=== PATIENT | female | born 1935 | race Caucasian/White ===

== ENCOUNTER 2018-05-06 13:41 | Observation (INO) ==
[2018-05-06] MEDS ORDERED: Diatrizoate Meglum/Diatrizoate Sod Liq 9 ML UDC PO ONE (14:28)
[2018-05-06] MEDS ORDERED: Sod Chloride 0.9% Inj 1,000 ML IV.SIG SCH (14:30)
--- NOTE | 2018-05-06 14:44 | ED ---
HPI General Chief complaint: Weakness Stated complaint: Medical Time Seen by Provider: 05/06/18 14:15 Source: patient Mode of arrival: ambulatory Limitations: no limitations History of Present Illness HPI Narrative: 82 F c/o decreased appetite for two weeks along with constipation and decreased urination. appetite decreased. decrease oral hydration reported due to nausea throughout. + Vomiting x 1 today, nonbloody. No similar prior episode. Constipation has been helped by laxatives over past few days. Pt reports no ongoing medical care 2/2 no insurance or PMD for past twenty years. No cp/sob. + Subjective intermittent fevers for past few acuna reported. Related Data Home Medications Medication Instructions Recorded Confirmed No Known Home Medications 05/06/18 05/06/18 Allergies Allergy/AdvReac Type Severity Reaction Status Date / Time Fish Containing Products Allergy Rash Verified 05/06/18 14:10 Review of Systems ROS: all other systems reviewed are negative [facility] Medical History Medical History Anemia (Acute) Surgical History Surgical History H/O hemorrhoidectomy (Acute) History of knee surgery (Acute) Family History Family History Other Family history normal Social History Social History Substance History: No History of Abuse Second Hand Smoke Exposure: Yes Smoking Status: Never smoker How Often Do You Have a Drink Containing Alcohol: Never Recent Travel in [facility] within the Last 8 Weeks: No Recent Out of Country Travel within the Last 8 Weeks: No Exam Narrative Exam Narrative: GENERAL: 82 yo F, mildly anxious, WNWD SKIN: Focused skin assessment warm/dry. HEAD: Atraumatic. Normocephalic. EYES: Pupils equal and round. No scleral icterus. No injection or drainage. ENT: No nasal bleeding or discharge. Mucous membranes pink and moist. NECK: Trachea midline. No JVD. CARDIOVASCULAR: Tachycardia. Regular. RESPIRATORY: No accessory muscle use. Clear to auscultation. Breath sounds equal bilaterally. GASTROINTESTINAL: TTP epigastrium. Firm abdomen. No flank TTP. MUSCULOSKELETAL: No obvious deformities. No clubbing. No cyanosis. No edema. NEUROLOGICAL: Awake and alert. No obvious cranial nerve deficits. Motor grossly within normal limits. Normal speech. PSYCHIATRIC: Appropriate mood and affect; insight and judgment normal. Course Initial Documented Vital Signs Temperature 98.8 F 05/06/18 13:53 Pulse Rate 105 H 05/06/18 13:53 Respiratory Rate 20 12/05/18 13:53 Blood Pressure 197/95 H 05/06/18 13:53 Pulse Oximetry 96 05/06/18 13:53 Last Documented Vital Signs Temperature 98.0 F 05/07/18 08:00 Pulse Rate 94 H 05/07/18 08:00 Respiratory Rate 18 05/07/18 08:00 Blood Pressure 168/83 H 05/07/18 08:00 Pulse Oximetry 92 L 05/07/18 08:00 Sign Out Sign Out Data: Patient Sign Out occurred on 05/06/18 at 15:02. Patient's care was discussed, and care was transferred from Tomy Mills MD to Ari Bear MD. Sign Out Comment: multiple complaints with constipation, n and vomiting predominant ct ab/pel pending with significant epigastric ttp and possible abdominal mass thanks Last updated by Tomy Mills MD at 05/06/18 14:53 Post-Handoff Eval: The patient was initially seen by Dr. Mills, please refer to the initial history and physical. The patient has complained of anorexia, nausea, and an increase in abdominal pain with constipation. Has had any recent weight loss, has been attempting to eat cheesecake for her persistent abdominal pain with nausea and vomiting. CT of the abdomen and pelvis reveals significant intra- abdominal lymphadenopathy of the mesentery and retroperitoneum, suspicious for lymphoma and possibly leukemia. The patient denies any known history of cancer , does not have a primary physician, therefore, will be a 23-hour observation for interventional radiology biopsy and possible oncology input so patient has outpatient follow-up. Therefore, the on-call medical service was paged for 23- hour observation. I discussed the patient with Dr. Ma who recommends case management evaluation to evaluate for possible outpatient workup. Dior, case management, evaluated the patient and she recommends 23-hour observation for biopsy results and oncology evaluation. I had a discussion with the patient once again, she lives alone, does not drive, and calls a car service for rides. I had a discussion with the patient regarding the possibility of obtaining a ride to get an outpatient biopsy via interventional radiology, she is unsure if this is able to be done. Case management thought it may be an unsafe discharge if patient is discharged home with no availability of a ride to get to interventional radiology for biopsy. I discussed the patient once again with Dr. Ma who agrees with 23- hour observation, patient would benefit from IR evaluation for biopsy, oncology recommendations, and possibly case management evaluation of the patient's home situation and possible needs at home for outpatient follow-up. Medical Decision Making GREGORY Attestation GREGORY supervised visit: Yes MDM Narrative Medical decision making narrative: Case d/w Dr Bear at 300pm with work up having been started about [address] ab/pel along with blood work pending at that time. Disposition dependent on results of work up. Medical Screen Exam Complete: Yes Emergency Medical Condition: Yes Differential Diagnosis Differential Diagnosis: Differential diagnosis includes gastritis, gastroenteritis, pancreatic cancer, colon cancer, symptomatic anemia, acute kidney injury, renal failure, UTI. Lab Data Result diagrams: 05/06/18 14:40 05/06/18 14:40 Lab Results 05/06/18 05/06/18 05/06/18 Range/Units 14:40 14:40 14:40 WBC 6.4 (4.0-11.0) th/mm3 RBC 4.89 (4.00-5.30) mil/mm3 Hgb 14.5 (11.6-15.3) gm/dL Hct 42.7 (35.0-46.0) % MCV 87.3 (80.0-100.0) fL MCH 29.6 (27.0-34.0) pg MCHC 33.9 (32.0-36.0) % RDW 13.4 (11.6-17.2) % Plt Count 312 (150-450) th/mm3 MPV 6.6 L (7.0-11.0) fL Neut % (Auto) 70.7 H (16.0-70.0) % Lymph % (Auto) 15.0 (9.0-44.0) % Hart % (Auto) 12.0 H (0.0-8.0) % Eos % (Auto) 1.4 (0.0-4.0) % Baso % (Auto) 0.9 (0.0-2.0) % Neut # (Auto) 4.5 (1.8-7.7) th/mm3 Lymph # (Auto) 1.0 (1.0-4.8) th/mm3 Hart # (Auto) 0.8 (0.0-0.9) th/mm3 Eos # (Auto) 0.1 (0.0-0.4) th/mm3 Baso # (Auto) 0.1 (0.0-0.2) th/mm3 WBC Differential . Differential Comment Auto diff final PT (9.8-11.6) sec INR Ratio APTT (23.4-31.7) sec Sodium 140 (136-145) meq/L Potassium 3.9 (3.5-5.1) meq/L Chloride 103 (98-107) meq/L Carbon Dioxide 28.0 (21.0-32.0) meq/L Anion Gap 9 (5-15) meq/L BUN 13 (7-18) mg/dL Creatinine 0.95 (0.50-1.00) mg/dL Estimated GFR 57 L (>89) mL/min Random Glucose 102 (74-106) mg/dL Lactic Acid 1.4 (0.4-2.0) mmol/L Calcium 10.2 H (8.5-10.1) mg/dL Magnesium 2.4 (1.5-2.5) mg/dL Total Bilirubin 0.4 (0.2-1.0) mg/dL AST 28 (15-37) U/L ALT 40 (10-53) U/L Alkaline Phosphatase 109 (45-117) U/L Total Protein 7.8 (6.4-8.2) g/dL Albumin 3.5 (3.4-5.0) g/dL Lipase 110 (73-393) U/L Urine Color (Yellw/Straw) Urine Clarity (Clear) Urine pH (5.0-8.5) Ur Specific [place] (1.002-1.035) Urine Protein (Neg-Trace) mg/dL Urine Glucose (UA) (Negative) mg/dL Urine Ketones (Negative) mg/dL Urine Occult Blood (Negative) Urine Nitrate (Negative) Urine Bilirubin (Negative) Urine Urobilinogen (Less than 2) mg/dL Ur Leukocyte Esterase (Negative) Urine RBC (0-3) /hpf Urine WBC (0-5) /hpf Ur Squamous Epith Cells (0-5) /hpf Amorphous Sediment (None) /hpf Urine Bacteria (None) /hpf Hyaline Casts (0-3) /lpf Urine Mucus (Occasional) /lpf Micro UA Comment Ur Microscopic Review Urine Culture Comments 05/06/18 05/06/18 Range/Units 14:42 21:50 WBC (4.0-11.0) th/mm3 RBC (4.00-5.30) mil/mm3 Hgb (11.6-15.3) gm/dL Hct (35.0-46.0) % MCV (80.0-100.0) fL MCH (27.0-34.0) pg MCHC (32.0-36.0) % RDW (11.6-17.2) % Plt Count (150-450) th/mm3 MPV (7.0-11.0) fL Neut % (Auto) (16.0-70.0) % Lymph % (Auto) (9.0-44.0) % Hart % (Auto) (0.0-8.0) % Eos % (Auto) (0.0-4.0) % Baso % (Auto) (0.0-2.0) % Neut # (Auto) (1.8-7.7) th/mm3 Lymph # (Auto) (1.0-4.8) th/mm3 Hart # (Auto) (0.0-0.9) th/mm3 Eos # (Auto) (0.0-0.4) th/mm3 Baso # (Auto) (0.0-0.2) th/mm3 WBC Differential Differential Comment PT 11.4 (9.8-11.6) sec INR 1.1 Ratio APTT 28.0 (23.4-31.7) sec Sodium (136-145) meq/L Potassium (3.5-5.1) meq/L Chloride (98-107) meq/L Carbon Dioxide (21.0-32.0) meq/L Anion Gap (5-15) meq/L BUN (7-18) mg/dL Creatinine (0.50-1.00) mg/dL Estimated GFR (>89) mL/min Random Glucose (74-106) mg/dL Lactic Acid (0.4-2.0) mmol/L Calcium (8.5-10.1) mg/dL Magnesium (1.5-2.5) mg/dL Total Bilirubin (0.2-1.0) mg/dL AST (15-37) U/L ALT (10-53) U/L Alkaline Phosphatase (45-117) U/L Total Protein (6.4-8.2) g/dL Albumin (3.4-5.0) g/dL Lipase (73-393) U/L Urine Color [place] (Yellw/Straw) Urine Clarity Cloudy H (Clear) Urine pH 6.0 (5.0-8.5) Ur Specific [place] 1.014 (1.002-1.035) Urine Protein Negative (Neg-Trace) mg/dL Urine Glucose (UA) Negative (Negative) mg/dL Urine Ketones Trace H (Negative) mg/dL Urine Occult Blood Negative (Negative) Urine Nitrate Negative (Negative) Urine Bilirubin Negative (Negative) Urine Urobilinogen Less than 2 (Less than 2) mg/dL Ur Leukocyte Esterase Large H (Negative) Urine RBC 1 (0-3) /hpf Urine WBC 4 (0-5) /hpf Ur Squamous Epith Cells 2 (0-5) /hpf Amorphous Sediment Rare H (None) /hpf Urine Bacteria Rare H (None) /hpf Hyaline Casts 1 (0-3) /lpf Urine Mucus Few H (Occasional) /lpf Micro UA Comment Culture not ind Ur Microscopic Review Not Reportable Urine Culture Comments Culture not ind Imaging Data Radiologist's impression: Abdomen/Pelvis CT 05/06/18 14:28 CONCLUSION: 1. Extensive retroperitoneal, peritoneal and mesenteric adenopathy considerations include both a lymphoma and chronic lymphocytic leukemia. Any of these nodes would be amenable to pancreas biopsy with large caliber needle for diagnosis. 2. Gallstones and a prominent gallbladder. Discharge Plan Discharge Disposition Patient Disposition: ED Admit(ED Internal Use Only) Discharge Condition Condition: Stable Discharge Order Discharge Orders: ED Use Only Admit Order (Routine); Ordered 05/06/18 Ordered By: Ari Bear Discharge Details Diagnosis: Intra-abdominal lymphadenopathy Physicians Team ED Provider: Ari Bear Primary Care Provider: Primary Care Brandy Gutiérrez Attending Provider: Leander Gregory Other Providers: Wiley Phillips Status ED Status: Left Department Discharge Information Discharge Date/Time: 05/06/18 22:35
[2018-05-06 14:57] LABS: Amorphous Sediment,Urine Rare /hpf; Bacteria,Urine Rare /hpf; Bilirubin,Urine Negative (Negative); Clarity,Urine Cloudy (Clear); Color,Urine Amber (Yellw/Straw); Glucose,Urine (UA) Negative (Negative); Hyaline Casts,Urine 1 /lpf (0-3); Leukocyte Esterase,Urine Large (Negative); Mucus,Urine Few /lpf (Occasional); Nitrite,Urine Negative (Negative); Specific Gravity,Urine 1.014 (1.002-1.035); Squamous Epithelial Cell,Urine 2 /hpf (0-5)
[2018-05-06 14:58] LABS: Baso # (Auto) 0.1 th/mm3 (0.0-0.2); Baso % (Auto) 0.9 % (0.0-2.0); Eos # (Auto) 0.1 th/mm3 (0.0-0.4); Eos % (Auto) 1.4 % (0.0-4.0); Hematocrit 42.7 % (35.0-46.0); Hemoglobin 14.5 gm/dL (11.6-15.3); Mean Corpuscular HGB Conc 33.9 % (32.0-36.0); Mean Corpuscular Hemoglobin 29.6 pg (27.0-34.0); Mean Corpuscular Volume 87.3 fL (80.0-100.0); Mean Platelet Volume 6.6 fL (7.0-11.0); Mono # (Auto) 0.8 th/mm3 (0.0-0.9); Neut # (Auto) 4.5 th/mm3 (1.8-7.7); Neut % (Auto) 70.7 % (16.0-70.0); Platelet Count 312 th/mm3 (150-450); Red Blood Count 4.89 mil/mm3 (4.00-5.30); Red Cell Distribution Width 13.4 % (11.6-17.2); White Blood Count 6.4 th/mm3 (4.0-11.0)
[2018-05-06 15:15] LABS: Alanine Aminotransferase 40 U/L (10-53); Albumin 3.5 g/dL (3.4-5.0); Anion Gap 9 meq/L (5-15); Aspartate Aminotransferase 28 U/L (15-37); Blood Urea Nitrogen 13 mg/dL (7-18); Calcium 10.2 mg/dL (8.5-10.1); Chloride 103 meq/L (98-107); Glomerular Filtration Rate 57 mL/min (>89); Glucose,Random 102 mg/dL (74-106); Lipase 110 U/L (73-393); Magnesium 2.4 mg/dL (1.5-2.5); Potassium 3.9 meq/L (3.5-5.1); Sodium 140 meq/L (136-145)
[2018-05-06 15:17] LABS: Alkaline Phosphatase 109 U/L (45-117); Total Protein 7.8 g/dL (6.4-8.2)
--- NOTE | 2018-05-06 17:55 | CT ---
EXAM DATE: 05/06/2018 5:44 PM EST AGE/SEX: 82 years / Female INDICATIONS: Nausea constipation epigastric pain CLINICAL DATA: This is the patient's initial encounter. Patient reports that signs and symptoms have been present for 1 day and indicates a pain score of 7/10. MEDICAL/SURGICAL HISTORY: Anemia. Hemorrhoidectomy. ORAL CONTRAST: Partial prescribed oral contrast ingested. RADIATION DOSE: 6.72 CTDI (mGy) COMPARISON: . TECHNIQUE: Multiple contiguous axial images were obtained through the abdomen and pelvis following b olus infusion of 80 ml Omnipaque 350 (iohexol) nonionic water-soluble contrast as a single exam dos e. Partial prescribed oral contrast ingested. Using automated exposure control and adjustment of the mA and/or kV according to patient size, radiation dose was kept as low as reasonably achievable to o btain optimal diagnostic quality images. DICOM format image data is available electronically for rev iew and comparison. FINDINGS: The lower lungs are clear. Small hiatal hernia with air-filled esophagus suggesting reflux The liver is free of focal defects Gallstones are present and a prominent gallbladder without gallbladder wall thickening. There is mild dilatation of the pancreatic duct. There is a small 1 cm focal defect in the spleen. The adrenals and kidneys are unremarkable. Diffuse mesenteric and retroperitoneal adenopathy is prese nt including retrocrural nodes that extends down to the obturator region. Nodes are insinuating throu ghout the mesentery as well. There is symmetrical renal function without mass or obstruction Pelvic contents are grossly unremarkable. Multiple diverticuli are noted. Trace ascites is evident. R eview of bone windows reveals only degenerative changes with some sclerosis about the left SI joint. CONCLUSION: 1. Extensive retroperitoneal, peritoneal and mesenteric adenopathy considerations include both a lym phoma and chronic lymphocytic leukemia. Any of these nodes would be amenable to pancreas biopsy with large caliber needle for diagnosis. 2. Gallstones and a prominent gallbladder. Electronically signed by: Scott Hanson MD 05/06/2018 5:54 PM EST
[2018-05-06] MEDS ORDERED: Acetaminophen 325 MG Tablet PO PRN (20:42)
[2018-05-06] MEDS ORDERED: Bisacodyl 10 MG Supp RECTAL PRN (20:42)
--- NOTE | 2018-05-06 20:50 | P.HP ---
History of Present Illness Service: [facility] Primary Care Physician: No Primary Care Physician History of Present Illness: 82-year-old female with no significant past medical history presents the emergency department for the evaluation of abdominal pain. The patient reports 2-1/2 weeks of diffuse abdominal pain, constipation, nausea/vomiting and intermittent fever/chills. The patient denies any hematemesis or dark, tarry stools. No dizziness or lightheadedness. No chest pain or shortness of breath. No focal neurologic deficits. Review of Systems All other systems reviewed negative except as stated in HPI PMFSH - History History Provided By: Patient - Medical History Medical History: Medical History (Last Reviewed 05/06/18 @ 20:47 by Holly Ma MD) Anemia - Surgical History Surgical History: Surgical History (Last Updated 05/06/18 @ 20:47 by Holly Ma MD) H/O hemorrhoidectomy History of knee surgery - Family History Family History: Family History (Last Updated 05/06/18 @ 20:47 by Holly Ma MD) Other Family history normal - Social History I have reviewed the patient's Social History: Yes - Tobacco History Second Hand Smoke Exposure: Yes Smoking Status: Never smoker - Alcohol History How Often Do You Have a Drink Containing Alcohol: Never - Substance Use History Substance History: No History of Abuse - Travel History Recent Travel in the [place] Within the Last 8 Weeks: No Recent Travel Out of the Country Within the Last 8 Weeks: No - Immunization History Tetanus Immunization: Unsure Medications and Allergies Active Medications: Active Medications Acetaminophen (Tylenol) 650 mg PO Q4H PRN PRN Reason: Temp > 100.4 Al Hydroxide/Mg Hydroxide (Milk Of Magnesia Liq) 30 ml PO Q12H PRN PRN Reason: Mild Constipation Bisacodyl (Dulcolax Supp) 10 mg RECTAL DAILY PRN PRN Reason: SEVERE CONSITIPATION Sodium Chloride (Ns Inj) 1,000 mls @ 100 mls/hr IV.CONT .Q10H DARRELL Lactulose (Lactulose Liq) 30 ml PO DAILY PRN PRN Reason: SEVERE CONSITIPATION Senna/Docusate Sodium (Rola-Colace) 1 tab PO BID DARRELL Allergies Allergy/AdvReac Type Severity Reaction Status Date / Time Fish Containing Products Allergy Rash Verified 05/06/18 14:10 Home Medications Medication Instructions Recorded Confirmed Type No Known Home Medications 05/06/18 05/06/18 History Exam Vital signs: Vital Signs 05/06/18 13:53 05/06/18 14:03 05/06/18 14:28 Temperature 98.8 F Pulse Rate 105 H 106 H Respiratory Rate 20 20 Blood Pressure 197/95 H 183/111 H Pulse Oximetry 96 95 96 05/06/18 18:47 05/06/18 20:40 Temperature Pulse Rate 97 H 104 H Respiratory Rate 18 20 Blood Pressure 179/97 H 162/78 H Pulse Oximetry 94 L 96 Intake & Output 05/06/18 05/06/18 05/07/18 06:59 18:59 06:59 Intake Total 1000 / 1000 Balance 1000 / 1000 Weight 61.235 kg Intake: IV 1000 / 1000 NS Inj 1,000 ML @ 1000 mls/hr 1000 / 1000 IV.SIG [facility]US [facility] Rx#:[id number] Narrative: Gen.: No acute distress Head: Normocephalic. Atraumatic. EENT: Pupils equal round and reactive to light. Nose without drainage. Airway intact. Throat without injection. Cardiovascular: Regular rate and rhythm. No murmurs, rubs or gallops. Respiratory: Lungs clear to auscultation bilaterally. No wheezes or rhonchi. Abdomen: Soft, mildly distended. No peritoneal signs. Diffusely tender to palpation. Musculoskeletal: No gross deformities. No edema. Skin: No obvious rashes or erythema. Neuro: Sensory and motor grossly intact. Cranial nerves II through XII grossly intact. Results - Labs CBC & Chem 7: 05/06/18 14:40 05/06/18 14:40 Labs: Laboratory Results - last 24 hr 05/06/18 05/06/18 05/06/18 14:40 14:40 14:40 WBC 6.4 RBC 4.89 Hgb 14.5 Hct 42.7 MCV 87.3 MCH 29.6 MCHC 33.9 RDW 13.4 Plt Count 312 MPV 6.6 L Neut % (Auto) 70.7 H Lymph % (Auto) 15.0 [place] % (Auto) 12.0 H Eos % (Auto) 1.4 Baso % (Auto) 0.9 Neut # (Auto) 4.5 Lymph # (Auto) 1.0 [place] # (Auto) 0.8 Eos # (Auto) 0.1 Baso # (Auto) 0.1 WBC Differential . Differential Comment Auto diff final Sodium 140 Potassium 3.9 Chloride 103 Carbon Dioxide 28.0 Anion Gap 9 BUN 13 Creatinine 0.95 Estimated GFR 57 L Random Glucose 102 Lactic Acid 1.4 Calcium 10.2 H Magnesium 2.4 Total Bilirubin 0.4 AST 28 ALT 40 Alkaline Phosphatase 109 Total Protein 7.8 Albumin 3.5 Lipase 110 Urine Color Urine Clarity Urine pH Ur Specific [place] Urine Protein Urine Glucose (UA) Urine Ketones Urine Occult Blood Urine Nitrate Urine Bilirubin Urine Urobilinogen Ur Leukocyte Esterase Urine RBC Urine WBC Ur Squamous Epith Cells Amorphous Sediment Urine Bacteria Hyaline Casts Urine Mucus Micro UA Comment Ur Microscopic Review Urine Culture Comments 05/06/18 14:42 WBC RBC Hgb Hct MCV MCH MCHC RDW Plt Count MPV Neut % (Auto) Lymph % (Auto) [place] % (Auto) Eos % (Auto) Baso % (Auto) Neut # (Auto) Lymph # (Auto) [place] # (Auto) Eos # (Auto) Baso # (Auto) WBC Differential Differential Comment Sodium Potassium Chloride Carbon Dioxide Anion Gap BUN Creatinine Estimated GFR Random Glucose Lactic Acid Calcium Magnesium Total Bilirubin AST ALT Alkaline Phosphatase Total Protein Albumin Lipase Urine Color [place] Urine Clarity Cloudy H Urine pH 6.0 Ur Specific [place] 1.014 Urine Protein Negative Urine Glucose (UA) Negative Urine Ketones Trace H Urine Occult Blood Negative Urine Nitrate Negative Urine Bilirubin Negative Urine Urobilinogen Less than 2 Ur Leukocyte Esterase Large H Urine RBC 1 Urine WBC 4 Ur Squamous Epith Cells 2 Amorphous Sediment Rare H Urine Bacteria Rare H Hyaline Casts 1 Urine Mucus Few H Micro UA Comment Culture not ind Ur Microscopic Review Not Reportable Urine Culture Comments Culture not ind - Imaging Impressions Abdomen/Pelvis CT 05/06/18 14:28 CONCLUSION: 1. Extensive retroperitoneal, peritoneal and mesenteric adenopathy considerations include both a lymphoma and chronic lymphocytic leukemia. Any of these nodes would be amenable to pancreas biopsy with large caliber needle for diagnosis. 2. Gallstones and a prominent gallbladder. Caprini VTE Risk Assessment Caprini VTE Risk Assessment: Moderate/High Risk (score >= 2) Caprini Risk Assessment Model: Point Value = 1 Point Value = 2 Point Value = 3 Point Value = 5 Age 41-60 Minor surgery BMI > 25 kg/m2 Swollen legs Varicose veins or History of unexplained or recurrent spontaneous Oral contraceptives or hormone replacement Sepsis (< 1 month) Serious lung disease, including pneumonia (< 1 month) Abnormal pulmonary function Acute myocardial infarction Congestive heart failure (< 1 month) History of inflammatory bowel disease Medical patient at bed rest Age 61-74 Arthroscopic surgery Major open surgery (> 45 min) Laparoscopic surgery (> 45 min) Malignancy Confined to bed (> 72 hours) Immobilizing plaster cast Central venous access Age >= 75 History of VTE Family history of VTE Factor V Leiden Prothrombin [id number] Lupus anticoagulant Anticardiolipin antibodies Elevated serum homocysteine Heparin-induced thrombocytopenia Other congenital or acquired thrombophilia Stroke (< 1 month) Elective arthroplasty Hip, pelvis, or leg fracture Acute spinal cord injury (< 1 month) Prophylaxis Regimen: Total Risk Factor Score Risk Level Prophylaxis Regimen 0-1 Low Early ambulation 2 Moderate Order ONE of the following: *Sequential Compression Device (SCD) *Heparin 5000 units SQ BID 3-4 Higher Order ONE of the following medications: *Heparin 5000 units SQ TID *Enoxaparin/Lovenox 40 mg SQ daily (WT < 150 kg, CrCl > 30 mL/min) *Enoxaparin/Lovenox 30 mg SQ daily (WT < 150 kg, CrCl > 10-29 mL/min) *Enoxaparin/Lovenox 30 mg SQ BID (WT < 150 kg, CrCl > 30 mL/min) AND/OR *Sequential Compression Device (SCD) 5 or more Highest Order ONE of the following medications: *Heparin 5000 units SQ TID (Preferred with Epidurals) *Enoxaparin/Lovenox 40 mg SQ daily (WT < 150 kg, CrCl > 30 mL/min) *Enoxaparin/Lovenox 30 mg SQ daily (WT < 150 kg, CrCl > 10-29 mL/min) *Enoxaparin/Lovenox 30 mg SQ BID (WT < 150 kg, CrCl > 30 mL/min) AND *Sequential Compression Device (SCD) Assessment and Plan - Plan Assessment/plan: 1. Abdominal pain/nausea/vomiting/anorexia CT of the abdomen/pelvis reveals extensive retroperitoneal, peritoneal and mesenteric adenopathy concerning for lymphoma or CLL Interventional radiology consulted to perform percutaneous needle biopsy Oncology consulted, appreciate assistance FEN N.p.o. Electrolytes: Monitor and replete as needed NS at 100 cc/hour Holding pharmacologic anticoagulation in anticipation of lymph node biopsy
[2018-05-06 22:17] LABS: INR 1.1 Ratio; Prothrombin Time 11.4 sec (9.8-11.6)
[2018-05-06] MEDS: Senna/Docusate Sodium 8.6/50 MG Tablet PO SCH (22:28)
[2018-05-07] MEDS ORDERED: fentaNYL Citrate Inj 250 MCG/5 ML Ampul ONE (09:12)
--- NOTE | 2018-05-07 09:46 | P.RAD ---
Post CT Procedure Prog Note - Procedure Information Procedure Date: 05/07/18 Supervising Radiologist: Jae Cazares MD Estimated blood loss (mL): 0 Anesthesia: Conscious Sedation - Plan of Activity Patient to Unit: ROPU Patient condition: Good See PACS Report for procedural detail/treatment.
[2018-05-07] MEDS: Senna/Docusate Sodium 8.6/50 MG Tablet PO SCH (11:04)
[2018-05-07] MEDS: Sod Chloride 0.9% Inj 1,000 ML IV.CONT SCH ×2 (11:04)
--- NOTE | 2018-05-07 13:39 | P.PN ---
Subjective Interval history: Nursing denies any acute changes overnight. Has returned from her lymph node biopsy. Patient herself says her pain is much better than yesterday. Denies any nausea vomiting. Has some family at bedside. Excited about being able to go home. Physical Exam Vital signs: Vital Signs 05/06/18 13:53 05/06/18 14:03 05/06/18 14:28 Temperature 98.8 F Pulse Rate 105 H 106 H Respiratory Rate 20 20 Blood Pressure 197/95 H 183/111 H Pulse Oximetry 96 95 96 05/06/18 18:47 05/06/18 20:40 05/06/18 22:38 Temperature 98.0 F Pulse Rate 97 H 104 H 95 H Respiratory Rate 18 20 20 Blood Pressure 179/97 H 162/78 H 146/87 H Pulse Oximetry 94 L 96 94 L 05/07/18 04:00 05/07/18 08:00 05/07/18 10:00 Temperature 98.2 F 98.0 F 98.7 F Pulse Rate 82 94 H 20 L Respiratory Rate 16 18 16 Blood Pressure 146/79 H 168/83 H 122/78 Pulse Oximetry 97 92 L 90 L 05/07/18 10:19 05/07/18 12:00 Temperature 98.1 F Pulse Rate 78 83 Respiratory Rate 16 18 Blood Pressure 139/78 156/78 H Pulse Oximetry 96 91 L Intake & Output 05/06/18 05/07/18 05/07/18 18:59 06:59 18:59 Intake Total 1000 / 1000 800 / 800 Balance 1000 / 1000 800 / 800 Weight 61.235 kg Intake: IV 1000 / 1000 800 / 800 NS Inj 1,000 ML @ 100 mls/hr IV 800 / 800 .CONT .Q10H DARRELL Rx#:[id number] NS Inj 1,000 ML @ 1000 mls/hr 1000 / 1000 IV.SIG BOLUS DARRELL Rx#:[id number] Narrative: Abdomen soft, minimally tender to palpation diffusely, nondistended Clear lungs bilaterally, labored breathing Heart sounds regular rate and rhythm, no murmurs Results - Labs CBC & Chem 7: 05/06/18 14:40 05/06/18 14:40 Laboratory Results - last 24 hr 05/06/18 05/06/18 05/06/18 14:40 14:40 14:40 WBC 6.4 RBC 4.89 Hgb 14.5 Hct 42.7 MCV 87.3 MCH 29.6 MCHC 33.9 RDW 13.4 Plt Count 312 MPV 6.6 L Neut % (Auto) 70.7 H Lymph % (Auto) 15.0 [place] % (Auto) 12.0 H Eos % (Auto) 1.4 Baso % (Auto) 0.9 Neut # (Auto) 4.5 Lymph # (Auto) 1.0 [place] # (Auto) 0.8 Eos # (Auto) 0.1 Baso # (Auto) 0.1 WBC Differential . Differential Comment Auto diff final PT INR APTT Sodium 140 Potassium 3.9 Chloride 103 Carbon Dioxide 28.0 Anion Gap 9 BUN 13 Creatinine 0.95 Estimated GFR 57 L Random Glucose 102 Lactic Acid 1.4 Calcium 10.2 H Magnesium 2.4 Total Bilirubin 0.4 AST 28 ALT 40 Alkaline Phosphatase 109 Total Protein 7.8 Albumin 3.5 Lipase 110 Urine Color Urine Clarity Urine pH Ur Specific [place] Urine Protein Urine Glucose (UA) Urine Ketones Urine Occult Blood Urine Nitrate Urine Bilirubin Urine Urobilinogen Ur Leukocyte Esterase Urine RBC Urine WBC Ur Squamous Epith Cells Amorphous Sediment Urine Bacteria Hyaline Casts Urine Mucus Micro UA Comment Ur Microscopic Review Urine Culture Comments 05/06/18 05/06/18 14:42 21:50 WBC RBC Hgb Hct MCV MCH MCHC RDW Plt Count MPV Neut % (Auto) Lymph % (Auto) [place] % (Auto) Eos % (Auto) Baso % (Auto) Neut # (Auto) Lymph # (Auto) [place] # (Auto) Eos # (Auto) Baso # (Auto) WBC Differential Differential Comment PT 11.4 INR 1.1 APTT 28.0 Sodium Potassium Chloride Carbon Dioxide Anion Gap BUN Creatinine Estimated GFR Random Glucose Lactic Acid Calcium Magnesium Total Bilirubin AST ALT Alkaline Phosphatase Total Protein Albumin Lipase Urine Color [place] Urine Clarity Cloudy H Urine pH 6.0 Ur Specific [place] 1.014 Urine Protein Negative Urine Glucose (UA) Negative Urine Ketones Trace H Urine Occult Blood Negative Urine Nitrate Negative Urine Bilirubin Negative Urine Urobilinogen Less than 2 Ur Leukocyte Esterase Large H Urine RBC 1 Urine WBC 4 Ur Squamous Epith Cells 2 Amorphous Sediment Rare H Urine Bacteria Rare H Hyaline Casts 1 Urine Mucus Few H Micro UA Comment Culture not ind Ur Microscopic Review Not Reportable Urine Culture Comments Culture not ind Microbiology 05/06/18 14:40 Blood - Peripheral Aerobic Blood Culture - Preliminary No growth in 1 day 12/05/18 14:40 Blood - Peripheral Anaerobic Blood Culture - Preliminary No growth in 1 day 05/06/18 14:40 Blood - Peripheral Aerobic Blood Culture - Preliminary No growth in 1 day 05/06/18 14:40 Blood - Peripheral Anaerobic Blood Culture - Preliminary No growth in 1 day - Imaging Impressions Abdomen/Pelvis CT 05/06/18 14:28 CONCLUSION: 1. Extensive retroperitoneal, peritoneal and mesenteric adenopathy considerations include both a lymphoma and chronic lymphocytic leukemia. Any of these nodes would be amenable to pancreas biopsy with large caliber needle for diagnosis. 2. Gallstones and a prominent gallbladder. Assessment and Plan - Plan 82 y/o BF admitted with abd pain Abdominal pain, retroperitoneal, peritoneal and mesenteric lymphadenopathy -UA is unremarkable, CMP from yesterday unremarkable Much improved since yesterday, status post IR biopsy of lymph node biopsy concerning for CLL versus lymphoma Oncology has seen the patient, outpatient follow-up Tolerating p.o. intake. Has not needed narcotics in the last 12 hours. patient has met maximum benefit from authorization is clinically stable for discharge
--- NOTE | 2018-05-07 15:13 | CT ---
EXAM DATE: 05/07/2018 1:24 PM EST AGE/SEX: 82 years / Female INDICATIONS: Lymphadenopathy. CLINICAL DATA: This is the patient's initial encounter. Patient reports that signs and symptoms have been present for 1 day and indicates a pain score of 0/10. MEDICAL/SURGICAL HISTORY: Anemia. None. COMPARISON: No prior exams available for comparison. BIOPSY SITE: Left lymph node MEDICATION(S): 3mg midazolam (Versed) IV 200mcg fentanyl (Sublimaze) IV DEVICE(S): 17 gauge Introducer 18 gauge BARD biopsy needle Four core specimen(s) sent to the laboratory for pathologic evaluation. . . PROCEDURE: CT guided Left lymph node biopsy Prior to the procedure informed consent was obtained. Any appropriate prior imaging studies were rev iewed. Using automated exposure control and adjustment of the mA and/or kV according to patient size, radiat ion dose was kept as low as reasonably achievable to obtain optimal diagnostic quality images. DICOM format image data is available electronically for review and comparison. The site was prepped in a sterile fashion. Full sterile technique was used, including cap, mask, jay jay rile gloves and gown and a large sterile sheet. Hand hygiene and 2% chlorhexidine and/or betadine/al cohol prep was utilized per protocol for cutaneous antisepsis. The skin and subcutaneous tissues wer e infiltrated with local anesthetic solution. With CT guidance the previously identified target was localized. Biopsy was performed using the presc ribed needle as above. Adequate hemostasis was obtained with compression at the puncture site. Speci mens were also submitted in RPMI solution. Follow-up CT scan reveals no hemorrhage. The patient tolerated the procedure well and there were no complications. The patient was returned to the Radiology Outpatient Unit in stable condition. FINDINGS: Bulky retroperitoneal adenopathy. CONCLUSION: 1. Uncomplicated CT guided 18-gauge core biopsies of bulky retroperitoneal adenopathy. Electronically signed by: Jae Cazares MD 05/07/2018 3:12 PM EST
== END 2018-05-07 14:45 | disposition home or self-care (01) ==
LOC: NEPE 13:41 → NEDA 13:41 → NEPGCP 22:26
PROVIDERS: ADMIT Hospitalist; ATTEND Hospitalist